=== PATIENT | male | born 1985 | race Caucasian/White ===

== ENCOUNTER → 2020-03-19 | Outpatient (CLI) | payer BC ==
[~2020-03-19] MED LIST: PEN-VEE K500 MG PO; PERCOCET 325 MG1 TA2 PO; PROAIR HFA0.09 MG/AC IH
== END ==
LOC: ZCOL.LAB 12:13
DX: Z01.818 Encounter for other preprocedural examination (principal); Z20.828 Contact with and (suspected) exposure to other viral communicable diseases